=== PATIENT | female | born 1970 | race Caucasian/White ===

== ENCOUNTER 2024-10-07 01:37 | Emergency (ER) | payer OTHER ==
[2024-10-07] MEDS ORDERED: Ketorolac Tromethamine 30 MG (1 mL) VIAL ONE (01:58)
[2024-10-07] MEDS ORDERED: Sodium Chloride 0.9% 1,000 ML ONE (01:59)
[2024-10-07] MEDS ORDERED: Metoclopramide HCl 10 MG (2 mL) VIAL ONE (01:59)
[2024-10-07 02:21] LABS: #Basophils 0.1 thou/uL (0.0-0.2); #Eosinophils 0.1 thou/uL (0.0-0.7); #Lymphocytes 1.4 thou/uL (1.20-3.40); #Monocytes 0.6 thou/uL (0.11-0.59); #Neutrophils 4.8 thou/uL (1.40-6.50); %Basophils 0.8 % (0.0-1.0); %Lymphocytes 20.6 % (21.0-51.0); %Monocytes 8.2 % (0.0-10.0); %Neutrophils 68.4 % (42.0-75.0); Hematocrit 37.3 % (36.0-47.0); Hemoglobin 13.1 g/dL (12.0-16.0); Mean Corpuscular HGB CONC 35.1 g/dL (32.0-36.0); Mean Corpuscular Hemoglobin 31.5 pg (27.0-31.0); Mean Corpuscular Volume 89.9 fl (78.0-98.0); Mean Platelet Volume 8.7 fL (7.4-10.4); Platelet Count 205 10x3/uL (130-400); RBC Distribution Width 11.8 % (11.5-14.5); Red Blood Cell (RBC) Count 4.15 mill/uL (4.20-5.40)
[2024-10-07 02:28] LABS: Bilirubin Negative (Negative); Blood, Urine Negative (Negative); Clarity Clear (Clear); Glucose, Urine (Dipstick) Negative (Negative); Ketone, Urine Negative (Negative); Leukocyte Negative (Negative); Nitrite Negative (Negative); Protein, Urine (Dipstick) Negative (Neg-Trace); Specific Gravity, Urine 1.015 (1.005-1.030); Urobilinogen 0.2 mg/dL (Less than 2); pH, Urine 5.5 (5.0-9.0)
[2024-10-07 02:34] LABS: CAUTI Indications for Culture Pelvic or flank pain; RBC/HPF 0-3 HPF (0-3); WBC/HPF 0-3 HPF (0-3)
[2024-10-07 02:34] LABS: ALT (SGPT) 22 U/L (8-55); AST (SGOT) 18 U/L (5-34); Albumin 3.9 g/dL (3.5-5.0); Alkaline Phosphatase 63 U/L (40-110); Anion Gap 14 mmol/L (10-20); BUN (Urea Nitrogen) 17 mg/dL (9.8-20.1); Bilirubin, Total 0.3 mg/dL (0.2-1.2); Calc. Creatinine Clearance 0 mL/min (70-130); Calcium 8.6 mg/dL (7.8-10.44); Carbon Dioxide 24 mmol/L (22-29); Chloride 103 mmol/L (98-107); Estimated GFR 94; Globulin 2.3 g/dL (2.4-3.5); Glucose 106 mg/dL (70-105); Lipase 39 U/L (8-78); Potassium 4.1 mmol/L (3.5-5.1); Protein, Total 6.2 g/dL (6.0-8.3); Sodium 137 mmol/L (136-145)
[2024-10-07 02:35] LABS: Bacteria/HPF 1+ HPF (None Seen); Urine Culture Reflex No No
== END 2024-10-07 03:00 | disposition home or self-care (01) ==
LOC: NAV ERS 01:37
DX: R11.2 Nausea with vomiting, unspecified (principal); Z55.6 Problems related to health literacy
CPT/HCPCS: 80053; 81001; 83690; 85025; 96361; 96374; 96375; J1885; J2765; J7030